=== PATIENT | male | born 1955 | race Caucasian/White ===

== ENCOUNTER → 2020-08-28 10:39 | Outpatient (BNVA) | payer BC, SELFPAY | PROVIDERS: PCP Internal Medicine; Visit Provider Urology | DX: N40.0 Benign prostatic hyperplasia without lower urinary tract symptoms (principal); R97.20 Elevated prostate specific antigen [PSA] | CPT/HCPCS: 81002 ==

== ENCOUNTER → 2021-02-23 15:16 | Outpatient (BNVA) | payer BC, SELFPAY | PROVIDERS: PCP Internal Medicine; Visit Provider Urology ==

== ENCOUNTER → 2022-02-26 12:58 | Outpatient (BNVA) | payer SELFPAY | PROVIDERS: PCP Internal Medicine; Visit Provider Urology | DX: N40.1 Benign prostatic hyperplasia with lower urinary tract symptoms (principal); N13.8 Other obstructive and reflux uropathy | CPT/HCPCS: 51798 ==

== ENCOUNTER 2023-06-17 13:12 | Outpatient (AMB) | payer MEDICARE, SELFPAY ==
--- NOTE | 2023-06-17 13:12 | A.OFFVIS_ITS ---
Intake Intake Visit Reasons: 1YR PSA/PVR(SET) Intake Note: Patient is present today via telephone for PSA results follow-up: Meds- None Allergies to Antibiotic- No Known Allergies Blood Thinner- Aspirin PSR Results: 4.3 ng/mL, 03/23/2023 Die Sinker Required: No Accompanied by: Self / Same As Patient Allergies No Known Allergies Allergy (Verified 02/26/22 13:24) Medication List - Last Reconciled 06/17/23 by Navdeep Young MD aspirin (Adult Aspirin Regimen) 81 mg PO DAILY atorvastatin 10 mg PO DAILY lisinopril 5 mg PO DAILY HPI HPI Comments History of Present Illness0 Details Niko is a pleasant male. He is a patient of Dr. Thomas. 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 Lower urinary tract symptoms Reports minimal issues with the urinary storage or emptying PSA 02/19 3.7, 02/20 3.8, 03/23 4.3 Happy with current urinary performance Continue yearly surveillance [facility] Medical History (Updated 06/17/23 @ 14:54 by Navdeep Young MD) BPH (benign prostatic hyperplasia) Surgical History H/O elbow surgery History of hip replacement Review of Systems Const All systems reviewed & are unremarkable except as noted in HPI and below Reports no additional complaints Resp Reports no additional complaints GI Reports no additional complaints Reports as per HPI Musc Reports no additional complaints Physical Exam Telemedicine evaluation Appropriate responses Regular breathing rate and rhythm HEENT Head: Yes normal to inspection Ears: hearing grossly normal bilaterally Eyes General: appearance normal, both eyes and all related structures Neck Neck: Yes normal visual inspection Chest Chest palpation & inspection: normal inspection of the chest Resp Effort & Inspection: normal respiratory effort and able to speak in complete sentences Assessment & Plan Assessment & Plan (1) BPH (benign prostatic hyperplasia): Code(s): N40.0 - Benign prostatic hyperplasia without lower urinary tract symptoms Qualifiers: Lower urinary tract symptom presence: symptoms absent Qualified Code(s): N40.0 - Benign prostatic hyperplasia without lower urinary tract symptoms (2) Elevated PSA: Code(s): R97.20 - Elevated prostate specific antigen [PSA] Plan 6m f/u PSA Orders: Orders Prostate Specific Antigen 6 Months N40.0 - Benign prostatic hyperplasia without lower urinary tract symptoms Patient Instructions: Imaging studies, laboratory and physical exam results were discussed and reviewed in detail. No major barriers to patient understanding were identified. An opportunity to ask questions regarding the treatment plan was provided. All questions were answered. The patient expressed understanding and agreement with the above treatment plan. The patient is aware they should contact our office by phone for worsening of their current condition or the appearance of new urologic symptoms. Compliance is encouraged with any medications and followup testing that is ordered. It is a privilege to participate in the urologic care of your patient. If you have any questions or concerns regarding treatment for the above conditions, or other urologic issues, please do not hesitate to contact me. The office telephone contact is [phone]. This note is constructed using voice recognition software. While every effort has been made to ensure accuracy commercial lines manager errors may have been included. Yours sincerely, Dr Navdeep Young MD, [facility] - Urology Providers of Expert, Compassionate Care for the Genitourinary System Telehealth Telehealth Location of provider rendering services: practice address Location of patient: address on file Patient Identification confirmed using: Name, : Yes Telehealth method: video Patient verbally consented to treatment: Yes Patient verbally consented to billing insurance company: Yes Patient informed of any privacy concerns related to visit: Yes Coding Level of Care Code Tele Est Pt Level 3 (29151) Diagnoses Benign prostatic hyperplasia without lower urinary tract symptoms N40.0 Lower urinary tract symptom presence: symptoms absent Elevated PSA R97.20
== END 2023-06-17 14:57 | disposition home or self-care (01) ==
LOC: HO.HUSH 13:12
PROVIDERS: PCP Internal Medicine; Visit Provider Urology
DX: N40.0 Benign prostatic hyperplasia without lower urinary tract symptoms (principal); R97.20 Elevated prostate specific antigen [PSA]
CPT/HCPCS: 99213

== ENCOUNTER → 2023-06-17 13:12 | Outpatient (BNVA) | payer MEDICARE, SELFPAY | PROVIDERS: PCP Internal Medicine; Visit Provider Urology ==

== ENCOUNTER 2023-12-26 10:14 | Outpatient (AMB) | payer MEDICARE, SELFPAY ==
--- NOTE | 2023-12-26 10:22 | A.OFFVIS_ITS ---
Intake Visit Reasons: PSA follow up(set) Intake Note: Patient is Present for Follow Up Urology Medication: None Antibiotic Allergies:None Blood Thinners:None Allergies No Known Allergies Allergy (Verified 12/26/23 10:27) HPI Comments Details: Niko is a pleasant male. He is a patient of Dr. Thomas. 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 Has upcoming surgery for double vision Planning cruise to [place] this summer Lower urinary tract symptoms Reports minimal issues with the urinary storage or emptying PSA 02/19 3.7, 02/20 3.8, 03/23 4.3, 12/23 3.7 Happy with current urinary performance Continue yearly surveillance [facility] Medical History BPH (benign prostatic hyperplasia) Surgical History H/O elbow surgery History of hip replacement Review of Systems Const Denies chills and Denies fever(s) Card Reports no additional complaints and Denies syncope Resp Denies cough GI Denies abdominal pain and Denies heartburn Reports as per HPI and Denies change in libido Neuro Denies syncope Psych Denies change in libido Endo Denies change in libido Physical Exam Const General: cooperative, healthy appearing, comfortable and no acute distress Orientation/consciousness: patient oriented x3 HEENT Face and sinus: Yes normal facial exam Mouth: moist mucous membranes Neck Neck: Yes normal visual inspection, Yes full ROM and Yes trachea midline Chest Chest palpation & inspection: normal inspection of the chest Resp Effort & Inspection: normal respiratory effort, able to speak in complete sentences and no respiratory distress GI Inspection: Yes normal to inspection Back/Spine/Pelvis Cervical Spine: normal cervical lordosis Thoracic/Lumbar Spine: thoracic and lumbar spine normal to inspection Skin General skin exam: no rashes or lesions noted Neuro General: patient oriented x3, gait normal, tone normal and moves all extremities Extrem General: Yes normal to inspection and Yes capillary refill normal Assessment & Plan Assessment & Plan (1) Elevated PSA: Code(s): R97.20 - Elevated prostate specific antigen [PSA] Category: Medical Plan Twelve month follow-up PSA Orders: Orders Prostate Specific Antigen 364 Days R97.20 - Elevated prostate specific antigen [PSA] Patient Instructions: Imaging studies, laboratory and physical exam results were discussed and reviewed in detail. No major barriers to patient understanding were identified. An opportunity to ask questions regarding the treatment plan was provided. All questions were answered. The patient expressed understanding and agreement with the above treatment plan. The patient is aware they should contact our office by phone for worsening of their current condition or the appearance of new urologic symptoms. Compliance is encouraged with any medications and followup testing that is ordered. It is a privilege to participate in the urologic care of your patient. If you have any questions or concerns regarding treatment for the above conditions, or other urologic issues, please do not hesitate to contact me. The office telephone contact is [phone]. This note is constructed using voice recognition software. While every effort has been made to ensure accuracy dietary supervisor errors may have been included. Yours sincerely, Dr Navdeep Young MD, [facility] - Urology Providers of Expert, Compassionate Care for the Genitourinary System Coding Level of Care Code Est Pt Level 3 (51900) Diagnoses Elevated PSA R97.20
== END 2023-12-26 10:46 | disposition home or self-care (01) ==
PROVIDERS: PCP Internal Medicine; Visit Provider Urology
DX: R97.20 Elevated prostate specific antigen [PSA] (principal)
CPT/HCPCS: 99213

== ENCOUNTER → 2023-12-26 10:14 | Outpatient (BNVA) | payer MEDICARE, SELFPAY | PROVIDERS: PCP Internal Medicine; Visit Provider Urology | DX: R97.20 Elevated prostate specific antigen [PSA] (principal) | CPT/HCPCS: 99212 ==

== ENCOUNTER 2024-12-24 09:40 | Outpatient (AMB) | payer MEDICARE, SELFPAY ==
--- NOTE | 2024-12-24 09:41 | MHC.OFFVIS ---
Intake Visit Reasons: 1y/PSA Intake Note: Patient is present via telehealth for a 1 year follow up/PSA Urology Medication: None Antibiotic Allergies:None Blood Thinners:None Allergies No Known Allergies Allergy (Verified 12/24/24 09:42) HPI Comments Details: Niko is a pleasant male. He is a patient of Dr. Thomas. 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 Has upcoming surgery for double vision Planning cruise to [place] this summer Lower urinary tract symptoms Reports minimal issues with the urinary storage or emptying PSA 02/19 3.7, 02/20 3.8, 03/23 4.3, 12/23 3.7, 12/24 3.7 Happy with current urinary performance Continue yearly surveillance PFSH Medical History BPH (benign prostatic hyperplasia) Surgical History H/O elbow surgery History of hip replacement Review of Systems Const All systems reviewed & are unremarkable except as noted in HPI and below Reports no additional complaints Resp Reports no additional complaints GI Reports no additional complaints Reports as per HPI Musc Reports no additional complaints Physical Exam Telemedicine evaluation Appropriate responses Regular breathing rate and rhythm HEENT Head: Yes normal to inspection Ears: hearing grossly normal bilaterally Eyes General: appearance normal, both eyes and all related structures Neck Neck: Yes normal visual inspection Chest Chest palpation & inspection: normal inspection of the chest Resp Effort & Inspection: normal respiratory effort and able to speak in complete sentences Telehealth Telehealth Telehealth Platform: [place] Airline Location of provider rendering services: practice address Location of patient: address on file Patient Identification confirmed using: Name, : Yes Telehealth method: video Patient verbally consented to treatment: Yes Patient verbally consented to billing insurance company: Yes Patient informed of any privacy concerns related to visit: Yes Minutes spent on Phone/Video with Pt.: 15 Assessment & Plan Assessment & Plan (1) Elevated PSA: Code(s): R97.20 - Elevated prostate specific antigen [PSA] Category: Medical (2) BPH (benign prostatic hyperplasia): Code(s): N40.0 - Benign prostatic hyperplasia without lower urinary tract symptoms Category: Medical Qualifiers: Lower urinary tract symptom presence: symptoms absent Qualified Code(s): N40.0 - Benign prostatic hyperplasia without lower urinary tract symptoms Plan Twelve month follow-up PSA Orders: Orders PSA,Total (Free>4and<10) 12 Months N40.0 - Benign prostatic hyperplasia without lower urinary tract symptoms Patient Instructions: This note is constructed using voice recognition software. While every effort has been made to ensure accuracy self pay specialist errors may have been included. Imaging studies, laboratory and physical exam results were discussed and reviewed in detail. No major barriers to patient understanding were identified. An opportunity to ask questions regarding the treatment plan was provided. All questions were answered. The patient expressed understanding and agreement with the above treatment plan. The patient is aware they should contact our office by phone for worsening of their current condition or the appearance of new urologic symptoms. Compliance is encouraged with any medications and followup testing that is ordered. It is a privilege to participate in the urologic care of your patient. If you have any questions or concerns regarding treatment for the above conditions, or other urologic issues, please do not hesitate to contact me. The office telephone contact is [phone]. Sincerely, Dr Navdeep Young MD, [facility] - Urology Compassionate Specialist Care for the Genitourinary System Coding Level of Care Code Tele Est Pt Level 4 (56134) Complex EM visit Add On G2211 Diagnoses Elevated PSA R97.20 Benign prostatic hyperplasia without lower urinary tract symptoms N40.0 Lower urinary tract symptom presence: symptoms absent
--- OUTSIDE RECORDS SUMMARY | 2024-12-24 09:55 | XMS_ITS | Encounter Summary ---
Author Organization [facility] Address [address] [place] [address] Care Team Providers Care Pet Care Associate Name Role Phone Fei Hickey DO Primary Care Provider Unav ailable Fei Hickey DO Unavailable Unavailabl e Petrona Wade APRN Unavailable [phone] Tito Parish MD Unavailable [phone] Blayne Kyle MD Unavailable [phone] Navdeep Young MD Unavailable [phone] Juan Manuel Vallecillo MD Primary Care Provider Encounter Details Date Type Department Care Team (Late st Contact Info) Description 12/23/2023 Scanned Document [address] [phone] Primary Care, Scan Social History Tobacco Use Types Packs/Day Years Used Date Smoking Tobacco: Never Smokeless Tobacco: Never Alcohol Use Standard Drinks/Week Comments Yes 1 (1 standard drink = 0.6 oz pur e alcohol) PHQ-2 Answer Date Recorded PHQ-2 Total Score 0 07/31/2023 Sex and Gender Information Value Date Recorded Sex Assigned at Male 09/12/2024 10:23 PM EST Legal Sex Male 6:43 PM EST Gender Identity Male 09/12/2024 10:23 PM EST Sexual Orientation Not on file documented as of this encounter Plan of Treatment Upcoming Encounters Date Type Department Care Team (Late st Contact Info) Description 03/03/2025 1:00 PM EDT Office Visit [facility] 100 [facility] [address] [place] [address] Juan aMnuel Vallecillo MD 100 [facility] [address] [place] [address] documented as of this encounter Visit Diagnoses Not on filedocumented in this encounter Care Teams Pet Care Associate Relationship Specialty Start Date End Date Fei Hickey DO PCP - General Internal Medicine 07/31/23 09/12/24 Fei Hickey DO PCP - APNCT [place] Medicare Attributed 09/01/23 10/01/24 Juan Manuel Vallecillo MD [address] [address] PCP - General Internal Medicine 09/13/24 Petrona Wade APRN [address] [place] [address] Nurse Practitioner Internal Medicine 02/23/24 Tito Parish MD [address] [place] [address] Gastroenterology 02/23/24 Blayne Kyle MD [address] [place] [phone] Dermatology 02/23/24 Navdeep Young MD [address] [address] Urology 02/23/24 [facility] Dentist 02/23/24 documented as of this encounter
--- OUTSIDE RECORDS SUMMARY | 2024-12-24 09:55 | XMS_ITS | Encounter Summary ---
Author Organization [facility] Address [address] [place] [address] Care Team Providers Care Marketing Graphics Specialist Name Role Phone Fei Hickey DO Primary Care Provider Unav ailable Fei Hickey DO Unavailable Unavailabl e Petrona Wade APRN Unavailable [phone] Tito Parish MD Unavailable [phone] Blayne Kyle MD Unavailable [phone] Navdeep Young MD Unavailable [phone] Juan Manuel Vallecillo MD Primary Care Provider [phone] Encounter Details Date Type Department Care Team (Late st Contact Info) Description 09/30/2023 Scanned Document [address] [phone] Primary Care, Scan Social History Tobacco Use [...] Description 03/03/2025 1:00 PM EDT Office Visit [facility] 100 [facility] 101 [place] [address] Juan Manuel Vallecillo MD 100 [facility] [address] [place] [address] documented as of this encounter Visit Diagnoses Not on filedocumented in this encounter Care Teams Marketing Graphics Specialist Relationship Specialty Start Date End Date Fei Hickey DO PCP - General Internal Medicine 07/31/23 09/12/24 Fei Hickey DO PCP - APNCT [place] Medicare Attributed 09/01/23 10/01/24 Juan Manuel Valleclilo MD [address] [address] PCP - General Internal Medicine 09/13/24 Petrona Wade APRN [address] [place] [address] Nurse Practitioner Internal Medicine 02/23/24 Tito Parish MD [address] [place] [address] Gastroenterology 02/23/24 Blayne Kyle MD [address] [place] [phone] Dermatology 02/23/24 Navdeep Young MD [address] [address] Urology 02/23/24 [facility] Dentist 02/23/24 documented as of this encounter
--- OUTSIDE RECORDS SUMMARY | 2024-12-24 09:55 | XMS_ITS | Encounter Summary ---
Author Organization [facility] Address [address] [place] [address] Care Team Providers Care Grubber Name Role Phone Petrona Wade APRN Unavailable [phone] Tito Parish MD Unavailable [phone] Blayne Kyle MD Unavailable [phone] Navdeep Young MD Unavailable [phone] Juan Manuel Vallecillo MD Primary Care Provider [phone] Encounter Details Date Type Department Care Team (Late st Contact Info) Description 12/22/[address] [phone] Juan Manuel Vallecillo MD [address] [place] [address] Social History Tobacco Use Types Packs/Day Years Used Date Smoking Tobacco: Never Smokeless Tobacco: Never Alcohol Use Standard Drinks/Week Comments Yes 1 (1 standard drink = 0.6 oz pur e alcohol) 1 drink/wk [facility] Utilities Answer Date Recorded In the past 12 months has [employer], gas, oil, or water [employer] threatened to shut off services in your home? No 09/12/2024 Social Connection and Isolat ion Panel [NHANES] Answer Date Recorded In a typical week, how many times do you talk on the phone with family, friends, or neighbors? More than three times a week 09/12/2024 Frequency of Social Gatherin gs with Friends and Family Not on file 09/12/2024 Attends [employer] Services Not on file 09/12 Active Member of Clubs or Organizations Not on f ile 09/12/2024 Attends Club or Organization Meetings Not on imtiaz e 09/12/2024 Marital Status Not on file 09/12/2024 AUDIT-C Answer Date Recorded Q1: How often do you have a drink containing alc ohol? 2-4 times a month 09/12/2024 Q2: How many drinks containi ng alcohol do you have on a typical day when you are drinking? 1 or 2 09/12/2024 Q3: How often do you have si x or more drinks on one occasion? Never 09/12/2024 PHQ-2 Answer Date Recorded PHQ-2 Total Score 0 09/13/2024 Hunger Vital Sign Answer Date Recorded Within the past 12 months, y ou worried that your food would run out before you got the money to buy more. Never true 09/12/19 25 Within the past 12 months, t he food you bought just didn't last and you didn't have money to get more. Never true 09/12/2024 PRAPARE - Transportation Answer Date Re corded In the past 12 months, has l ack of transportation kept you from medical appointments or from getting medications? No 09/01 In the past 12 months, has l ack of transportation kept you from meetings, work, or from getting things needed for daily living? No 09/12/2024 Housing Stability Vital Sign Answer Escobar e Recorded In the last 12 months, was t here a time when you were not able to pay the mortgage or rent on time? No 09/12/2024 In the past 12 months, how m any times have you moved where you were living? 0 09/12/2024 At any time in the past 12 m [facility], were you homeless or living in a longterm (including now)? No 09/12/2024 Education Answer Date Recorded What is the highest level of school you have completed or the highest degree you have received? Bachelor's degree (e.g., BA, AB, BS) 09/12/2024 Sex and Gender Information Value Date Recorded Sex Assigned at Male 09/12/2024 10:23 PM EST Legal Sex Male 6:43 PM EST Gender Identity Male 09/12/2024 10:23 PM EST Sexual Orientation Not on file documented as of this encounter Miscellaneous Notes * Telephone Encounter - Venu Del Valle MA - 12/23/2024 12:08 PM EDT Referral placed and faxed to the number/provider listed below * Telephone Encounter - Venu Del Valle MA - 12/23/2024 10:04 AM EDT Ok to place referral? * Telephone Encounter - Yessenia Harry - 12/22/2024 4:27 PM EDT Pt needs a doctor to doctor referral placed last one placed was over a year ago, I do not believe his insurance requires a actual insurance auth, needs doctor to doctor * Telephone Encounter - Lillian Steele MA - 12/22/2024 3:04 PM EDT 's office needs a STAT insurance referral for urology. She stated his appt is on Friday, Diagnosis R97.20 . She is requesting 10 visits. documented in this encounter Plan of Treatment Upcoming Encounters Date Type Department Care Team (Late st Contact Info) Description 03/03/2025 1:00 PM EDT Office Visit [address] [place] [phone] Juan Manuel Vallecillo MD 100 [facility] 101 [place], [place] [phone] documented as of this encounter Visit Diagnoses Not on filedocumented in this encounter Care Teams Grubber Relationship Specialty Start Date End Date Juan Manuel Vallecillo MD 100 [facility] [address] [place] [address] PCP - General Internal Medicine 09/13/24 Petrona Wade APRN [address] [place] [address] Nurse Practitioner Internal Medicine 02/23/24 Tito Parish MD [address] [place] [address] Gastroenterology 02/23/24 Blayne Kyle MD [address] [place] [phone] Dermatology 02/23/24 Navdeep Young MD 100 [facility] [address] [place] [address] Urology 02/23/24 [facility] Dentist 02/23/24 documented as of this encounter
--- OUTSIDE RECORDS SUMMARY | 2024-12-24 09:55 | XMS_ITS | Clinical Summary ---
Author Organization [facility] Address [address] [place] [address] Care Team Providers Care Air Defense Artillery Senior Sergeant Name Role Phone Britton PerezFei sloan Juan ADaniel Primary Care Provi pawel Surgical History Surgery Date Site/Laterality Comments KNEE CARTILAGE SURGERY Right PROCEDURE:KNEE CARTILAGE SURGERY ELBOW SURGERY PROCEDURE:ELBOW SURGERY COLONOSCOPY 09/04/2018 N/A PROCEDURE:COLONOSCOPY;COMMENT :Procedure: COLONOSCOPY; Surgeon: Tito Parish MD; Location: [facility]; Service: Gastroenterology; Laterality: N/A; COLONOSCOPY 08/15/2015 N/A PROCEDURE:COLONOSCOPY;COMMENT :Procedure: COLONOSCOPY; Surgeon: Tito Parish MD; Location: [facility]; Service: Gastroenterology; Laterality: N/A; STRABISMUS SURGERY PROCEDURE:STRABISMUS SURGERY STRABISMUS SURGERY 01/16/2024 Right PROCEDURE:STRABISMUS SURGERY;COMMENT:Procedure: STRABISMUS REPAIR RIGHT EYE; Surgeon: Kair Brice MD; Location: [facility]; Service: Ophthalmology; Laterality: Right; TOTAL HIP ARTHROPLASTY 09/2015 Right PROCEDURE:TOTAL HIP ARTHROPLASTY CATARACT EXTRACTION W/ INTRAOCULAR LENS IMPLANT Right PROCEDURE:CATARACT EXTRACTION W/ INTRAOCULAR LENS IMPLANT COLONOSCOPY 02/26/2024 N/A PROCEDURE:COLONOSCOPY;COMMENT :Procedure: COLONOSCOPY; Surgeon: Tito Parish MD; Location: [facility]; Service: Gastroenterology; Laterality: N/A; Medical History Medical History Date Comments Right hip pain DX:Right hip alton n;COMMENT:hip replacement scheduled for September 2015 Arthritis DX:Arthritis Hypertension DX:Hypertension Prediabetes DX:Prediabetes Cataract DX:Cataract Colon polyp DX:Colon polyp Social History Tobacco Use Types Packs/Day Years Used Date Smoking Tobacco: Never Smokeless Tobacco: Never Alcohol Use Standard Drinks/Week Comments Yes 0 (1 standard drink = 0.6 oz pur e alcohol) Sex and Gender Information Value Date Recorded Sex Assigned at Not on file Legal Sex Male 11:31 AM EST Gender Identity Not on file Sexual Orientation Not on file Obstetrics History Plan of Treatment Health Maintenance Due Date Last Done Comments DTaP,Tdap,and Td Vaccines (1 - Tdap) 1975 Pneumococcal Vaccine: 50+ Ye ars (1 of 1 - PCV) 2006 Zoster Vaccines (1 of 2) 2006 Cholesterol Screening (Lipid Panel) 10/05/2023 Depression Screening 10/05/2023 Falls Risk Assessment 10/05/2023 Hepatitis C Screening 10/05/2023 Social Influencers of Health Screening 10/05/2023 COVID-19 Vaccine (1 - 2023-2 5 season) 2024 Influenza Vaccine (Season Ended) 2025 RSV Immunization Adult Patie nts (1 - 1-dose 75+ series) 2031 Colorectal Cancer Screening: Colonoscopy 02/25/2034 02/26/2024 HIB Vaccines Aged Out No longer eligi ble based on patient's age to complete this topic HPV Vaccines Aged Out No longer eligi ble based on patient's age to complete this topic Hepatitis A Vaccines Aged Out No long er eligible based on patient's age to complete this topic Hepatitis B Vaccines Aged Out No long er eligible based on patient's age to complete this topic IPV Vaccines Aged Out No longer eligi ble based on patient's age to complete this topic MMR Vaccines Aged Out No longer eligi ble based on patient's age to complete this topic Meningococcal ACWY Vaccine Aged Out N o longer eligible based on patient's age to complete this topic Meningococcal B Vaccine Aged Out No l onger eligible based on patient's age to complete this topic RSV Immunization Patients Un pawel 20 months Aged Out No longer eligible b ased on patient's age to complete this topic Varicella Vaccines Aged Out No longer eligible based on patient's age to complete this topic Medical Devices Implanted Type Area Finishing Inspector Device Identifier Shelf Expiration Date Model / Serial / Lot Sponge Surgifoam Gel 12 X 7mm [id number]-Ethi [id number] Implanted:Qty: 1 on 01/16/2024 by Kari Brice MD Implants Right: Nose [employer] 1972 / / Care Teams Air Defense Artillery Senior Sergeant Relationship Specialty Start Date End Date Fei Mendoza DO PCP - General 02/16/24
--- OUTSIDE RECORDS SUMMARY | 2024-12-24 09:55 | XMS_ITS | Encounter Summary ---
Author Organization [facility] Address [address] [place] [address] Care Team Providers Care Treasurer Savings Bank Name Role Phone Fei Hickey DO Primary Care Provider Unav ailable Fei Hickey DO Unavailable Unavailabl e Petrona Wade APRN Unavailable [phone] Tito Parish MD Unavailable [phone] Blayne Kyle MD Unavailable [phone] Navdeep Young MD Unavailable [phone] Juan Manuel Vallecillo MD Primary Care Provider Encounter Details Date Type Department Care Team (Late st Contact Info) Description 08/05/2023 Scanned Document [address] [phone] Primary Care, Scan Social History Tobacco Use [...] Description 03/03/2025 1:00 PM EDT Office Visit [facility] 100 [facility] 101 [place] [address] Juan Manuel Vallecillo MD 100 [facility] 101 [place] [address] documented as of this encounter Visit Diagnoses Not on filedocumented in this encounter Care Teams Treasurer Savings [employer] Relationship Specialty Start Date End Date Fei Hickey DO PCP - General Internal Medicine 07/31/23 09/12/24 Fei Hickey DO PCP - APNCT [place] Medicare Attributed 09/01/23 10/01/24 Juan Manuel Vallecillo MD [address] [address] PCP - General Internal Medicine 09/13/24 Petrona Wade APRN [address] [place] [address] Nurse Practitioner Internal Medicine 02/23/24 Tito Parihs MD [address] [place] [address] Gastroenterology 02/23/24 Blayne Kyle MD [address] [place] [phone] Dermatology 02/23/24 Navdeep Young MD [address] [address] Urology 02/23/24 edgardo dental Dentist 02/23/24 documented as of this encounter
--- OUTSIDE RECORDS SUMMARY | 2024-12-24 09:55 | XMS_ITS | Encounter Summary ---
Author Organization [facility] Address [address] [place] [address] Care Team Providers Care Deer Farm Worker Name Role Phone Petrona Wade APRN Unavailable [phone] Tito Parish MD Unavailable [phone] Blayne Kyle MD Unavailable [phone] Navdeep Young MD Unavailable [phone] Juan Manuel Vallecillo MD Primary Care Provider [phone] Reason for Referral * Urology (Routine) - Authorized Specialty Diagnoses / Procedures Referred By Jake valle Referred To Contact Urology Diagnoses Elevated PSA Juan Manuel Vallecillo MD [address] [place] [address] Phone: tel: fax: Navdeep Young MD [address] [place] [address] Phone: tel: fax: Referral ID Status Reason Start Date Expiration Date V isits Requested Visits Authorized [id number] Authorized Consult 12/23/2024 12/24/2025 1 1 Encounter Details Date Type Department Care Team (Late st Contact Info) Description 12/23/2024 Orders Only [address] [phone] Juan Manuel Vallecillo MD [address] [facility] [address] [place] [address] Elevated PSA (Primary Dx) Social History Tobacco Use Types Packs/Day Years Used Date Smoking Tobacco: Never Smokeless Tobacco: Never Alcohol Use Standard Drinks/Week Comments Yes 1 (1 standard drink = 0.6 oz pur e alcohol) 1 drink/wk [facility] Utilities Answer Date Recorded In the past 12 months has th e Novint, gas, oil, or water [employer] threatened to shut off services in your home? No 09/12/2024 Social Connection and Isolat ion Panel [NHANES] Answer Date Recorded In a typical week, how many times do you talk on the phone with family, friends, or neighbors? More than three times a week 09/12/2024 Frequency of Social Gatherin gs with Friends and Family Not on file 09/12/2024 Attends Gnosticism Services Not on file 09/12 Active Member [...] any time in the past 12 m [facility], were you homeless or living in a fdc (including now)? No 09/12/2024 Education Answer Date [...] Description 03/03/2025 1:00 PM EDT Office Visit [address] [phone] Juan Manuel Vallecillo MD [address] [place], [place] [phone] Scheduled Referrals Name Type Priority Associated Diagnoses Orde r Schedule Amb referral to Urology Outpatient Referral Routine Elevated PSA Ordered: 12/23/2024 documented as of this encounter Visit Diagnoses Diagnosis Elevated PSA- Primary Elevated prostate specific antigen (PSA) documented in this encounter Care Teams Deer Farm Worker Relationship Specialty Start Date End Date Juan Manuel Vallecillo MD [address] [place] [address] PCP - General Internal Medicine 09/13/24 Petrona Wade APRN [address] [place] [address] Nurse Practitioner Internal Medicine 02/23/24 Tito Parish MD [address] [address] Gastroenterology 02/23/24 Blayne Kyle MD 125 [place] [phone] Dermatology 02/23/24 Navdeep Young MD 100 [facility] 240 [place] [address] Urology 02/23/24 edgardo dental Dentist 02/23/24 documented as of this encounter
--- OUTSIDE RECORDS SUMMARY | 2024-12-24 09:55 | XMS_ITS | Encounter Summary ---
Author Organization [facility] Address 100 [place] [address] Care Team Providers Care Instrument Installer Name Role Phone Pcp, No Primary Care Provider Unavailabl e Fei Hickey DO Primary Care Provider Unav ailable Fei Hickey DO Unavailable Unavailabl e Petrona Wade FRAME TRIMMER Unavailable Tito Parish MD Unavailable Blayne Kyle MD Unavailable [phone] Navdeep Young MD Unavailable Juan Manuel Vallecillo MD Primary Care Provider [phone] Encounter Details Date Type Department Care Team (Late st Contact Info) Description 09/08/2018 Scanned Document [facility] [address] [phone] Tito Parish MD [address] [place] [id number] Social History Tobacco Use Types Packs/Day Years Used Date Smoking Tobacco: Never Assessed Sex and Gender Information Value Date Recorded Sex Assigned at Male 09/12/2024 10:23 PM EST Legal Sex Male 6:43 PM EST Gender Identity Male 09/12/2024 10:23 PM EST Sexual Orientation Not on file documented as of this encounter Plan of Treatment Upcoming Encounters Date Type Department Care Team (Late st Contact Info) Description 03/03/2025 1:00 PM EDT Office Visit [facility] 100 [facility] 101 [place] [address] Juan Manuel Vallecillo MD 100 [facility] 101 [place] [address] documented as of this encounter Visit Diagnoses Not on filedocumented in this encounter Care Teams Instrument Installer Relationship Specialty Start Date End Date Pcp, No 80 [place] [address] PCP - General 05/14/23 07/30/23 Fei Hickey DO 80 [place] [address] PCP - General Internal Medicine 07/31/23 09/12/24 Fei Hickey DO PCP - APNCT [place] Medicare Attributed 09/01/23 10/01/24 Juan Manuel Vallecillo MD [address] [address] PCP - General Internal Medicine 09/13/24 Petrona Wade APRN [address] [place] [address] Nurse Practitioner Internal Medicine 02/23/24 Tito Parish MD [address] [place] [address] Gastroenterology 02/23/24 Blayne Kyle MD [address] [place] [phone] Dermatology 02/23/24 Navdeep Young MD [address] [address] Urology 02/23/24 ed[facility] dental Dentist 02/23/24 documented as of this encounter
--- OUTSIDE RECORDS SUMMARY | 2024-12-24 09:55 | XMS_ITS | Encounter Summary ---
Author Organization [facility] Address 100 [place] [address] Care Team Providers Care Tetryl Boiling Tub Operator Name Role Phone Fei Hickey DO Primary Care Provider Unav ailable Fei Hickey DO Unavailable Unavailabl e Petrona Wade APRN Unavailable Tito Parish MD Unavailable Blayne Kyle MD Unavailable [phone] Navdeep Young MD Unavailable Juan Manuel Vallecillo MD Primary Care Provider Encounter Details Date Type Department Care Team (Late st Contact Info) Description 11/27/[address] [facility] [address] [place] [address] Rosendo Salazar 30 [facility] [place] [address] Social History Tobacco Use Types Packs/Day Years [...] encounter Miscellaneous Notes * Telephone Encounter - Rosendo Salazar - 11/27/2023 10:53 AM EDT Patient could not hear me documented in this encounter Plan of Treatment Upcoming Encounters Date Type Department Care Team (Late st Contact Info) Description 03/03/2025 1:00 PM EDT Office Visit [facility] 100 [facility] [address] [place] [address] Juan Manuel Vallecillo MD 100 [facility] 101 [place] [address] documented as of this encounter Visit Diagnoses Not on filedocumented in this encounter Care Teams Tetryl Boiling Tub Operator Relationship Specialty Start Date End Date Fei Hickey DO PCP - General Internal Medicine 07/31/23 09/12/24 Fei Hickey DO PCP - APNCT [employer] Medicare Attributed 09/01/23 10/01/24 Juan Manuel Vallecillo MD [address] [place] [address] 240 [place] [address] PCP - General Internal Medicine 09/13/24 Petrona Wade, TITLE I DIRECTOR [address] [place] [address] Nurse Practitioner Internal Medicine 02/23/24 Tito Parish MD 113 [facility] 301 [place] [address] Gastroenterology 02/23/24 Blayne Kyle MD [address] [place] [phone] Dermatology 02/23/24 Navdeep Young MD 100 [place] [address] [place] [address] Urology 02/23/24 ed[facility]ardo dental Dentist 02/23/24 documented as of this encounter
--- OUTSIDE RECORDS SUMMARY | 2024-12-24 09:55 | XMS_ITS | Encounter Summary ---
Author Organization [facility] Address [address] [place] [address] Care Team Providers Care Bridge Manager Name Role Phone Fei Hickey DO Primary Care Provider Unav ailable Fei Hickey DO Unavailable Unavailabl e Petrona Wade APRN Unavailable [phone] Tito Parish MD Unavailable [phone] Blayne Kyle MD Unavailable [phone] Navdeep Young MD Unavailable [phone] Juan Manuel Vallecillo MD Primary Care Provider Encounter Details Date Type Department Care Team (Late st Contact Info) Description 12/24/2023 Scanned Document [address] [phone] Primary Care, Scan Social History Tobacco Use [...] Description 03/03/2025 1:00 PM EDT Office Visit [facility] 100 [facility] 101 [place] [address] Juan Manuel Vallecillo MD 100 [facility] 101 [place] [address] documented as of this encounter Visit Diagnoses Not on filedocumented in this encounter Care Teams Bridge Manager Relationship Specialty Start Date End Date Fei Hickey DO PCP - General Internal Medicine 07/31/23 09/12/24 Fei Hickey DO PCP - APNCT [place] Medicare Attributed 09/01/23 10/01/24 Juan Manuel Vallecillo MD [address] [address] PCP - General Internal Medicine 09/13/24 Petrona Wade APRN [address] [place] [address] Nurse Practitioner Internal Medicine 02/23/24 Tito Parish MD [address] [place] [address] Gastroenterology 02/23/24 Blayne Kyle MD [address] [place] [phone] Dermatology 02/23/24 Navdeep Young MD [address] [address] Urology 02/23/24 [facility] dental Dentist 02/23/24 documented as of this encounter
--- OUTSIDE RECORDS SUMMARY | 2024-12-24 09:55 | XMS_ITS | Clinical Summary ---
Author Organization [facility] Address 114 [place] [address] Care Team Providers Care Natural Gas Technician Name Role Phone Fei Mendoza DO Primary Care Prov ider Allergies Active Allergy Reactions Criticality Noted Date Comments Metformin Nausea And Vomiting Low 01/14/2024 Medications Medication Sig Dispensed Refills Start Date End Date Status aspirin 81 MG chewable tablet Chew 1 tablet (81 mg total) by mouth daily. 30 tablet 1 01/21/2017 Active losartan (COZAAR) tablet 25 mg Take 1 tablet (25 mg total) by mouth daily. 0 Active Calcipotriene (DOVONEX EX) Apply topically. 0 Active sildenafil (VIAGRA) 25 MG tablet Take 1 tablet (25 mg total) by mouth daily as needed for erectile dysfunction. 0 Active Ferrous Sulfate (IRON PO) Take by mouth daily. 0 Active Active Problems No known active problems Social History Tobacco Use Types Packs/Day Years Used Date Smoking Tobacco: Never Smokeless Tobacco: Never Alcohol Use Standard Drinks/Week Comments Yes 0 (1 standard drink = 0.6 oz pur e alcohol) occasional Sex and Gender Information Value Date Recorded Sex Assigned at Male 09/02/2018 11:11 AM EST Gender Identity Not on file Sexual Orientation Not on file Job Start Date Occupation Industry Not on file Not on file Not on file Last Filed Vital Signs Vital Sign Reading Time Taken Comments Blood Pressure 143/68 02/26/2024 10:34 AM EDT Pulse 60 02/26/2024 10:34 AM EDT Temperature 36.7 ??C (98 ??F) 02/26/2024 10:06 AM EDT Respiratory Rate 8 02/26/2024 10:34 AM EDT Oxygen Saturation 97% 02/26/2024 10:34 AM EDT Inhaled Oxygen Concentration - - Weight 117.9 kg (260 lb) 02/26/2024 8:46 AM EDT Height 182.9 cm (6') 02/26/2024 8:46 AM EDT Body Mass Index 35.26 02/26/2024 8:46 AM EDT Plan of Treatment Health Maintenance Due Date Last Done Comments Hepatitis C Screening 1956 COVID-19 Vaccine (#1) 1956 Depression Screening 1968 BMI Counseling 1974 Preventative Health Evaluation 1974 Shingrix-Zoster Vaccine (1 o f 2) 2006 Fall Risk Assessment 2021 Influenza Vaccine (#1) 2024 2, 07/04/2014 RSV Adult > 60+ Yrs or (1 - 1-dose 75+ series) 2031 DTap / Tdap / Td (3 - Td or Tdap) 04/26/2031 04/26/2021, 07/06/2014 Colon Cancer Screening (Colonoscopy) 02/25/2034 02/26/2024 Pneumococcal Vaccine Completed 11/14/2022 Hepatitis B Vaccines Aged Out No long er eligible based on patient's age to complete this topic RSV Ped < 20 months Aged Out No longe r eligible based on patient's age to complete this topic Medical Devices Implanted Type Area Obstetric Assistant Device Identifier Shelf Expiration Date Model / Serial / Lot Sponge Surgifoam Gel 12 X 7mm [id number] - [id number] Implanted:Qty : 1 on 01/16/2024 by Kari Brice MD at [facility] Hemostatic Agent Right: Nose [facility] [employer] 1971 / / Advance Directives For more information, please contact: [phone] Documents on File Type Date Recorded Patient Black Top Raker Expl anation Advance Directive and Living Will 01/16/2024 8:12 AM Latest Code Status on File Code Status Date Activated Date Inactivated Comments Full Code 09/04/2018 12:08 PM 09/04/2018 6:45 PM This c ode status was ascertained in the following way: discussion with patient. Code Status History Code Status Date Activated Date Inactivated Comments Full Code 08/15/2015 11:08 AM 08/15/2015 5:47 PM Th is code status was ascertained in the following way: discussion with patient. Care Teams Natural Gas Technician Relationship Specialty Start Date End Date Fei Mendoza, [address] [place] [address] PCP - General Family Medicine 02/16/24
--- OUTSIDE RECORDS SUMMARY | 2024-12-24 09:55 | XMS_ITS ---
Author Name [facility] Organization Unknown History of Medication Use Medication Directions Dispensed Refills Start Date End Date Stat us lactated ringers infusion 50 mL/hr, Intravenous, Continuous, Starting on Fri01/16/24 at 0830, Pre-op 01/16/2024 active ondansetron (ZOFRAN) injection 4 mg 4 mg, Intravenous, Once as needed, nausea, Starting on Fri01/16/24 at 1149, For 1 dose, PACU/Phase 1 01/16/2024 active gdvvjk-bqdjrtfyv-vwh nesium sulfates (SUPREP BOWEL PREP) 17.5-3.13-1.6 GM/177ML Solution solution Take as directed for Colonoscopy/GI Procedure. See administration instructions. 11/27/2023 active atorvastatin (LIPITOR) 10 MG tablet Take 1 tablet (10 mg total) by mouth daily. 05/08/2023 active aspirin 81 MG chewable tablet Chew 1 tablet (81 mg total) by mouth daily. 01/21/2017 active aspirin enteric coated (ECOTRIN LOW STRENGTH) 81 MG EC tablet Take 1 tablet (81 mg total) by mouth daily. active Calcipotriene (DOVONEX EX) Apply topically. active losartan (COZAAR) tablet 25 mg Take 1 tablet (25 mg total) by mouth daily. active losartan (COZAAR) tablet 25 mg Take 1 tablet (25 mg total) by mouth daily. active Problems Problem Status Onset Date Problem Type Date of Resoluti on Source Personal history of colonic polyps active EncounterDiagnosisAct [facility] Severe obesity (BMI 35.0-39.9) with comorbidity active 2023-12-24 [facility] Immunizations Vaccine Date Source Lot Number Status Pneumococcal Conjugate 20-Valent 11/14/2022 [facility] [id number] completed Influenza High-Dose Quadriva lent,(FLUZONE HIGH-DOSE), Perservative Free IM 0.7 mL 65 years and older 07/12/2022 [facility] [id number] completed Tdap 04/26/2021 [facility] [id number] completed Influenza, Unspecified 06/08/2020 [facility] [id number] co mpleted Tdap 07/06/2014 [facility] [id number] completed Influenza Inactivated/Split Preservative Free IM 07/04/2014 [facility] [id number] completed Encounters Encounter Type Encounter Reason Primary Diagnosis Location Date Ambulatory Essential (primary) hypertension Essential (primary) hypertension [facility] 09/13/2024 Ambulatory Personal history of colonic polyps Personal history of colonic polyps [facility] 02/26/2024 Ambulatory Encounter for genera l adult medical examination without abnormal findings Encounter for general adult medical examination without abnormal findings [facility] 02/23/2024 Ambulatory 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 [facility] 01/16/2024 Ambulatory Encounter for other preprocedural examination Encounter for other preprocedural examination [facility] 12/23/2023 Ambulatory Unspecified nystagmus Unspecifie d nystagmus [facility] 07/31/2023 Care Team Organization Name Specialty Phone Email Start Date End [facility] 09/14/2024 [facility] Primary Care 01/22/2024 [facility] Primary Care 01/22/20 [facility] 01/16/2024 [facility] RO Primary Care 01/06 [facility] Primary Care 04/2024 [facility] JANIS Primary Care 09/21/2023 11/17/2024 [facility] Fei Hickey Primary Care 07/31/20232024 [facility] Fei Hickey Primary Care 07/31/20232023 [facility] NO PCP Primary Care 07/31/2023 07/31/2023
--- OUTSIDE RECORDS SUMMARY | 2024-12-24 09:55 | XMS_ITS | Encounter Summary ---
Author Organization Formerly [facility] Address [address] [place] [address] Care Team Providers Care Hourly Shift Name Role Phone Fei Hickey DO Primary Care Provider Unav ailable Fei Hickey DO Unavailable Unavailabl e Petrona Wade APRN Unavailable [phone] Tito Parish MD Unavailable [phone] Blayne Kyle MD Unavailable [phone] Navdeep Young MD Unavailable [phone] Juan Manuel Vallecillo MD Primary Care Provider Encounter Details Date Type Department Care Team (Late st Contact Info) Description 12/08/2023 Scanned Document [address] [phone] Primary Care, Scan Social History Tobacco Use [...] Description 03/03/2025 1:00 PM EDT Office Visit [facility] [address] [facility] 101 [place] [address] Juan Manuel Vallecillo MD 100 [facility] 101 [place] [address] documented as of this encounter Visit Diagnoses Not on filedocumented in this encounter Care Teams Hourly Shift Relationship Specialty Start Date End Date Fei Hickey DO PCP - General Internal Medicine 07/31/23 09/12/24 Fei Hickey DO PCP - APNCT [place] Medicare Attributed 09/01/23 10/01/24 Juan Manuel Vallecillo MD [address] [address] PCP - General Internal Medicine 09/13/24 Petrona Wade APRN [address] [place] [address] Nurse Practitioner Internal Medicine 02/23/24 Tito Parish MD [address] [place] [address] Gastroenterology 02/23/24 Blayne Kyle MD [address] [place] [phone] Dermatology 02/23/24 Navdeep Young MD [address] [address] Urology 02/23/24 edgardo dental Dentist 02/23/24 documented as of this encounter
--- OUTSIDE RECORDS SUMMARY | 2024-12-24 09:55 | XMS_ITS | Encounter Summary ---
Author Organization [facility] Address [address] [place] [address] Care Team Providers Care Linotypist Name Role Phone Fei Hickey DO Primary Care Provider Unav ailable Fei Hickey DO Unavailable Unavailabl e Petrona Wade APRN Unavailable [phone] Tito Parish MD Unavailable [phone] Blayne Kyle MD Unavailable [phone] Navdeep Young MD Unavailable [phone] Juan Manuel Vallecillo MD Primary Care Provider Encounter Details Date Type Department Care Team (Late st Contact Info) Description 12/12/2023 Scanned Document [facility] PRIMARY CARE SCAN Primary Care, Scan Social History Tobacco Use [...] Description 03/03/2025 1:00 PM EDT Office Visit [address] [place] [phone] Juan Manuel Vallecillo MD 100 [facility] 101 [place] [address] documented as of this encounter Visit Diagnoses Not on filedocumented in this encounter Care Teams Linotypist Relationship Specialty Start Date End Date Fei Hickey DO PCP - General Internal Medicine 07/31/23 09/12/24 Fei Hickey DO PCP - APNCT [employer] Medicare Attributed 09/01/23 10/01/24 Juan Manuel Vallecillo MD 100 [facility] 240 [place] [address] PCP - General Internal Medicine 09/13/24 Petrona Wade APRN [address] [place] [address] Nurse Practitioner Internal Medicine 02/23/24 Tito Parish MD [address] [place] [address] Gastroenterology 02/23/24 Blayne Kyle MD [address] [place] [phone] Dermatology 02/23/24 Navdeep Young MD 100 [facility] 240 [place] [address] Urology 02/23/24 edgardo dental Dentist 02/23/24 documented as of this encounter
--- OUTSIDE RECORDS SUMMARY | 2024-12-24 09:55 | XMS_ITS | Encounter Summary ---
Author Organization [facility] Address 100 [place] [address] Care Team Providers Care Manager Utilization Name Role Phone Fei Hickey DO Primary Care Provider Unav ailable Fei Hickey DO Unavailable Unavailabl e Petrona Wade APRN Unavailable [phone] Tito Parish MD Unavailable Blayne Kyle MD Unavailable [phone] Navdeep Young MD Unavailable [phone] Juan Manuel Vallecillo MD Primary Care Provider [phone] Encounter Details Date Type Department Care Team (Late st Contact Info) Description 04/01/2024 Scanned Document [facility] at [address] [address] Fei Hickey DO Social History Tobacco Use Types Packs/Day Years Used Date Smoking Tobacco: Never Smokeless Tobacco: Never Alcohol Use Standard Drinks/Week Comments Yes 1 (1 standard drink = 0.6 oz pur e alcohol) 1 drink/wk AUDIT-C Answer Date Recorded Q1: How often do you have a drink containing alcohol? 4 or more times a week 02/23/2024 Q2: How many drinks containi ng alcohol do you have on a typical day when you are drinking? 1 or 2 Q3: How often do you have si x or more drinks on one occasion? Never 02/23/2024 PHQ-2 Answer Date Recorded PHQ-2 Total Score 0 02/23/2024 Sex and Gender Information Value Date Recorded Sex Assigned at Male 09/12/2024 10:23 PM EST Legal Sex Male 6:43 PM EST Gender Identity Male 09/12/2024 10:23 PM EST Sexual Orientation Not on file documented as of this encounter Plan of Treatment Upcoming Encounters Date Type Department Care Team ([facility] st Contact Info) Description 03/03/2025 1:00 PM EDT Office Visit [facility] 100 [facility] 101 [place] [address] Juan Manuel Vallecillo MD 100 [facility] 101 [place] [address] documented as of this encounter Visit Diagnoses Not on filedocumented in this encounter Care Teams Manager Utilization Relationship Specialty Start Date End Date Fei Hickey DO PCP - General Internal Medicine 07/31/23 09/12/24 Fei Hickey DO PCP - APAKT [employer] Medicare Attributed 09/01/23 10/01/24 Juan Manuel Vallecillo MD [address] [place] [address] PCP - General Internal Medicine 09/13/24 Petrona Wade APRN [address] [place] [address] Nurse Practitioner Internal Medicine 02/23/24 Tito Parish MD 113 [facility] 301 [place] [address] Gastroenterology 02/23/24 Blayne Kyle MD [address] [place] [phone] Dermatology 02/23/24 Navdeep Young MD [address] [place] [address] Urology 02/23/24 edgardo dental Dentist 02/23/24 documented as of this encounter
--- OUTSIDE RECORDS SUMMARY | 2024-12-24 09:55 | XMS_ITS | Encounter Summary ---
Author Organization [facility] Address 100 [place] [address] Care Team Providers Care Gantry Rigger Name Role Phone Fei Hickey DO Primary Care Provider Unav ailable Fei Hickey DO Unavailable Unavailabl e Petrona Wade APRN Unavailable [phone] Tito Parish MD Unavailable Blayne Kyle MD Unavailable [phone] Navdeep Young MD Unavailable Juan Manuel Vallecillo MD Primary Care Provider [phone] Encounter Details Date Type Department Care Team (Late st Contact Info) Description 12/19/[address] [address] Fei Hickey DO Social History Tobacco Use [...] Encounter - Venu Del Valle MA - 12/22/2023 12:40 PM EDT Pt advised of the referral * Telephone Encounter - Lillian Steele - 12/22/2023 11:12 AM EDT Pt stated he got a call from our office. Not sure who called. Please advise * Telephone Encounter - Fei Hickey DO - 12/22/2023 10:51 AM EDT No need. Entered the referral selecting patient request . Order is in. * Telephone Encounter - Venu Del Valle MA - 12/22/2023 10:[address] Navdeep Young Urologist in [facility] at [facility]. We can follow up with the reason for the referral tomorrow at his appointment. * Telephone Encounter - Fei Hickey DO - 12/22/2023 6:50 AM EDT If we could, please: Verify which Dr. Monahan the patient wants and the physical location and the reason for referral. I do not recall the discussion for this particular doctor during her most recent physician-patient encounter. And, the patient has a follow-up appointment with me on December 22 anyway; so, if he cannot get a hold of them, I will clarify this with him then. documented in this encounter Plan of Treatment Upcoming Encounters Date Type Department Care Team (Late st Contact Info) Description 03/03/2025 1:00 PM EDT Office Visit [address] [phone] Juan Manuel Vallecillo MD [address] [place] [address] 101 [place] [address] documented as of this encounter Visit Diagnoses Not on filedocumented in this encounter Care Teams Gantry Rigger Relationship Specialty Start Date End Date Fei Hickey DO PCP - General Internal Medicine 07/31/23 09/12/24 Fei Hickey DO PCP - APNJT [employer] Medicare Attributed 09/01/23 10/01/24 Juan Manuel Vallecillo MD 100 [facility] 240 [place] [address] PCP - General Internal Medicine 09/13/24 Petrona Wade APRN [address] [place] [address] Nurse Practitioner Internal Medicine 02/23/24 Tito Praish MD 113 [facility] 301 [place] [address] Gastroenterology 02/23/24 Blayne Kyle MD [address] [place] [phone] Dermatology 02/23/24 Navdeep Young MD 100 [facility] 240 [place] [address] Urology 02/23/24 edgardo arredondo Dentist 02/23/24 documented as of this encounter
--- OUTSIDE RECORDS SUMMARY | 2024-12-24 09:55 | XMS_ITS | Encounter Summary ---
Author Organization [facility] Address 100 [place] [address] Care Team Providers Care Jig Bore Operator Name Role Phone Pcp, No Primary Care Provider Unavailabl e Fei Hickey DO Primary Care Provider Unav ailable Fei Hickey DO Unavailable Unavailabl e Petrona Wade METAL BONDING WORKER Unavailable [phone] Tito Parish MD Unavailable Blayne Kyle MD Unavailable [phone] Navdeep Young MD Unavailable [phone] Juan Manuel Vallecillo MD Primary Care Provider [phone] Encounter Details Date Type Department Care Team (Late st Contact Info) Description 09/10/2018 Scanned Document [facility] [address] [place] [address] Provider, External, [address] [place] [address] Social History Tobacco Use Types Packs/Day Years Used Date Smoking Tobacco: Never Assessed Sex and Gender Information Value Date Recorded Sex Assigned at Male 09/12/2024 10:23 PM EST Legal Sex Male 6:43 PM EST Gender Identity Male 09/12/2024 10:23 PM EST Sexual Orientation Not on file documented as of this encounter Progress Notes * Tito Parish MD - 09/10/2018 11:49 AM EST HP polyps x 3 Repeat colon in 5 years documented in this encounter Plan of Treatment Upcoming Encounters Date Type Department Care Team (Late st Contact Info) Description 03/03/2025 1:00 PM EDT Office Visit [facility] 100 [facility] 101 [place] [address] Juan Manuel Vallecillo MD 100 [facility] 101 [place] [address] documented as of this encounter Procedures Procedure Name Priority Date/Time Associated Diagnosis Comments PATHOLOGY GASTROENTEROLOGY Routine 09/28/2018 documented in this encounter Results * PATHOLOGY GASTROENTEROLOGY (09/28/2018) us Tito Parish MD [facility] HX PATH PROCEDURES Final Result documented in this encounter Visit Diagnoses Not on filedocumented in this encounter Care Teams Jig Bore Operator Relationship Specialty Start Date End Date Pcp, No 80 [place] [address] PCP - General 05/14/23 07/30/23 Fei Hickey DO 80 [place] [address] PCP - General Internal Medicine 07/31/23 09/12/24 Fei Hickey DO PCP - APNJT [place] Medicare Attributed 09/01/23 10/01/24 Juan Manuel Vallecillo MD [address] [place] [address] 240 [place] [address] PCP - General Internal Medicine 09/13/24 Petrona Wade APRN [address] [place] [address] Nurse Practitioner Internal Medicine 02/23/24 Tito Parish MD [address] [place] [address] 301 [place] [address] Gastroenterology 02/23/24 Blayne Kyle MD 125 [place] [address] Dermatology 02/23/24 Navdeep Young MD 100 [facility] 240 [place] [address] Urology 02/23/24 edgardo dental Dentist 02/23/24 documented as of this encounter
--- OUTSIDE RECORDS SUMMARY | 2024-12-24 09:55 | XMS_ITS | Encounter Summary ---
Author Organization [facility] Address [address] [place] [address] Care Team Providers Care Electronic Engineering Technician Name Role Phone Petrona Wade APRN Unavailable [phone] Tito Parish MD Unavailable [phone] Blayne Kyle MD Unavailable [phone] Navdeep Young MD Unavailable [phone] Juan Manuel Vallecillo MD Primary Care Provider [phone] Encounter Details Date Type Department Care Team (Late st Contact Info) Description 12/22/[address] [address] Juan Manuel Vallecillo MD [address] [place] [address] Social History Tobacco Use Types Packs/Day Years Used Date Smoking Tobacco: Never Smokeless Tobacco: Never Alcohol Use Standard Drinks/Week Comments Yes 1 (1 standard drink = 0.6 oz pur e alcohol) 1 drink/wk [facility] Utilities Answer Date Recorded In the past 12 months has [employer], gas, oil, or water [employer] threatened to shut off services in your home? No 09/12/2024 Social Connection and Isolat ion Panel [NHANES] Answer Date Recorded In a typical week, how many times do you talk on the phone with family, friends, or neighbors? More than three times a week 09/12/2024 Frequency of Social Gatherin gs with Friends and Family Not on file 09/12/2024 Attends [employer] Services Not on file 09/12 Active Member [...] any time in the past 12 m [facility], were you homeless or living in a alf (including now)? No 09/12/2024 Education Answer Date [...] encounter Miscellaneous Notes * Telephone Encounter - Lillian Steele MA - 12/22/2024 3:06 PM EDT error documented in this encounter Plan of Treatment Upcoming Encounters Date Type Department Care Team (Late st Contact Info) Description 03/03/2025 1:00 PM EDT Office Visit [facility] 100 [facility] [address] [place] [phone] Juan Manuel Vallecillo MD 100 [facility] 101 [place] [address] documented as of this encounter Visit Diagnoses Not on filedocumented in this encounter Care Teams Electronic Engineering Technician Relationship Specialty Start Date End Date Juan Manuel Vallecillo MD [address] [address] PCP - General Internal Medicine 09/13/24 Petrona Wade APRN [address] [place] [address] Nurse Practitioner Internal Medicine 02/23/24 Tito Parish MD 113 [facility] 301 [place] [address] Gastroenterology 02/23/24 Blayne Kyle MD [address] [place] [phone] Dermatology 02/23/24 Navdeep Young MD 100 [facility] 240 [place] [address] Urology 02/23/24 edgardo dental Dentist 02/23/24 documented as of this encounter
--- OUTSIDE RECORDS SUMMARY | 2024-12-24 09:55 | XMS_ITS | Encounter Summary ---
Author Organization [facility] Address 100 [place] [address] Care Team Providers Care Metal Fabricating Supervisor Name Role Phone Fei Hickey DO Primary Care Provider Unav ailable Fei Hickey DO Unavailable Unavailabl e Petrona Wade APRN Unavailable Tito Parish MD Unavailable Blayne Kyle MD Unavailable [phone] Navdeep Young MD Unavailable Juan Manuel Vallecillo MD Primary Care Provider [phone] Encounter Details Date Type Department Care Team (Late st Contact Info) Description 04/05/2024 Scanned Document [facility] at [address] [phone] Fei Hickey DO Social History Tobacco Use [...] Upcoming Encounters Date Type Department Care Team ([facility] st Contact Info) Description 03/03/2025 1:00 PM EDT Office Visit [facility] 100 [facility] 101 [place] [address] Juan Manuel Vallecillo MD 100 [facility] 101 [place] [address] documented as of this encounter Visit Diagnoses Not on filedocumented in this encounter Care Teams Metal Fabricating Supervisor Relationship Specialty Start Date End Date Fei Hickey DO PCP - General Internal Medicine 07/31/23 09/12/24 Fei Hickey DO PCP - APLAT [employer] Medicare Attributed 09/01/23 10/01/24 Juan Manuel Vallecillo MD [address] [place] [address] PCP - General Internal Medicine 09/13/24 Petrona Wade APRN [address] [place] [address] Nurse Practitioner Internal Medicine 02/23/24 Tito Parish MD 113 [facility] 301 [place] [address] Gastroenterology 02/23/24 Blayne Kyle MD [address] [place] [phone] Dermatology 02/23/24 Navdeep Young MD [address] [place] [address] Urology 02/23/24 edgardo dental Dentist 02/23/24 documented as of this encounter
--- OUTSIDE RECORDS SUMMARY | 2024-12-24 09:55 | XMS_ITS | Encounter Summary ---
Author Organization [facility] Address [address] [place] [address] Care Team Providers Care Air Intercept Controller Supervisor Name Role Phone Fei Hickey DO Primary Care Provider Unav ailable Fei Hickey DO Unavailable Unavailabl e Petrona Wade APRN Unavailable [phone] Tito Parish MD Unavailable [phone] Blayne Kyle MD Unavailable [phone] Navdeep Young MD Unavailable [phone] Juan Manuel Vallecillo MD Primary Care Provider Encounter Details Date Type Department Care Team (Late st Contact Info) Description 12/15/2023 Scanned Document [facility] PRIMARY CARE SCAN Primary Care, Scan [...] Description 03/03/2025 1:00 PM EDT Office Visit [address] [place] [phone] Juan Manuel Vallecillo MD 100 [facility] 101 [place] [address] documented as of this encounter Visit Diagnoses Not on filedocumented in this encounter Care Teams Air Intercept Controller Supervisor Relationship Specialty Start Date End Date Fei Hickey DO PCP - General Internal Medicine 07/31/23 09/12/24 Fei Hickey DO PCP - APNCT [employer] Medicare Attributed 09/01/23 10/01/24 Juan Manuel Vallecillo MD 100 [facility] 240 [place] [address] PCP - General Internal Medicine 09/13/24 Petrona Wade APRN [address] [place] [address] Nurse Practitioner Internal Medicine 02/23/24 Tito Parish MD [address] [place] [address] Gastroenterology 02/23/24 Blayne Kyle MD [address] [place] [phone] Dermatology 02/23/24 Navdeep Young MD 100 [facility] 240 [place] [address] Urology 02/23/24 edgardo dental Dentist 02/23/24 documented as of this encounter
--- OUTSIDE RECORDS SUMMARY | 2024-12-24 09:55 | XMS_ITS | Clinical Summary ---
Author Organization [facility] Address 100 [place] [address] Care Team Providers Care Purchasing Manager Name Role Phone Petrona Wade APRN Unavailable Tito Parish MD Unavailable [phone] Blayne Kyle MD Unavailable [phone] Navdeep Young MD Unavailable [phone] Juan Manuel Vallecillo MD Primary Care Provider [phone] Allergies Active Allergy Reactions Criticality Noted Date Comments Metformin GI Intolerance/Nausea/Vomiting Low 12/22 Medications calcipotriene (DOVONEX) 0.005 % ointment APPLY TO PSORIASIS ON TRUNK, EXTREMITIES, GROIN AND BUTTOCKS TWICE DAILY NEEDED - ALTERNATING WITH STEROIDS 3 Active aspirin enteric coated (ECOTRIN LOW STRENGTH) 81 MG EC tablet Take 1 tablet (81 mg total) by mouth daily. Active Ferrous Sulfate Dried (FERROUS SULFATE IRON PO) Take by mouth daily. Active losartan (COZAAR) 25 MG tabletIndication s:Primary hypertension Take 1 tablet (25 mg total) by mouth daily. 90 tablet 1 5 Active sildenafil (VIAGRA) 50 MG tabletIndication s:Erectile dysfunction, unspecified erectile dysfunction type TAKE ONE TABLET BY MOUTH EVERY DAY NEEDED. 10 tablet 3 5 Active Active Problems Problem Noted Date Diagnosed Date Severe obesity (BMI 35.0-39.9) with comorbidity 12/24/2023 Overview (12/24/2023): Last BMI 36.97 and HTN listed in history + on losartan Encounters Date Type Department Care Team Description 12/23/2024 Orders Only [address] [place] [phone] Juan Manuel Vallecillo MD Elevated PSA (Primary Dx) 12/22/[address] [place] [address] Juan Manuel Vallecillo MD 12/22/[address] [place] [address] Juan Manuel Vallecillo MD from Last 3 Months Immunizations Immunization Administration Dates Next Due Influenza High-Dose Quadriva lent,(FLUZONE HIGH-DOSE), Perservative Free IM 0.7 mL 65 years and older 07/12/2022 Influenza Inactivated/Split Preservative Free IM 07/04/2014 Influenza, Unspecified 06/08/2020 Pneumococcal Conjugate 20-Valent 11/14/2022 Tdap 04/26/2021,07/06/2014 Family History Medical History Relation Name Comments Cancer Father Cancer Mother Relation Name Status Comments Father Mother Social History Tobacco Use Types Packs/Day Years Used Date Smoking Tobacco: Never Smokeless Tobacco: Never Tobacco Cessation:Counseling Given: No Alcohol Use Standard Drinks/Week Comments Yes 1 (1 standard drink = 0.6 oz pur e alcohol) 1 drink/wk [place] Utilities Answer Date Recorded In the past 12 months has [employer] gas, oil, or water [employer] threatened to shut off services in your home? No 09/12/2024 Social Connection and Isolat ion Panel [NHANES] Answer Date Recorded In a typical week, how many times do you talk on the phone with family, friends, or neighbors? More than three times a week 09/12/2024 Frequency of Social Gatherin gs with Friends and Family Not on file 09/12/2024 Attends [employer] Services Not on file 09/12 Active Member [...] any time in the past 12 m [facility], were you homeless or living in a long term (including now)? No 09/12/2024 Education Answer Date [...] PM EST Sexual Orientation Not on file Last Filed Vital Signs Vital Sign Reading Time Taken Comments Blood Pressure 136/86 09/13/2024 4:32 PM EST Pulse 75 09/13/2024 4:32 PM EST Temperature 36.8 ??C (98.2 ??F) 09/13/2024 4:32 PM ES T Respiratory Rate 16 09/13/2024 4:32 PM EST Oxygen Saturation 98% 09/13/2024 4:32 PM EST Inhaled Oxygen Concentration - - Weight 124 kg (273 lb 12.8 oz) 09/13/2024 4:32 P M EST Height 182.9 cm (6') 09/13/2024 4:32 PM EST Body Mass Index 37.13 09/13/2024 4:32 PM EST Plan of Treatment Upcoming Encounters Date Type Department Care Team (Late st Contact Info) Description 03/03/2025 1:00 PM EDT Office Visit [facility] 100 [facility] [address] [place] [address] Juan Manuel Vallecillo MD 100 [facility] 101 [place], [place] [address] Health Maintenance Due Date Last Done Comments Hepatitis C Virus Screening 1955 Zoster (Shingles) Vaccine (1 of 2) 2006 Influenza Vaccine 04/01/2024 07/12/2022, , 06/08/2020, Additional history exists Physical 07/31/2024 07/31/2023 Annual Wellness Visit 02/23/2025 02/23/2024 Colonoscopy 02/25/2029 02/26/2024 DTaP/Tdap/Td Vaccines (3 - Td or Tdap) 04/26/2031 04/26/2021, 07/06/2014 COVID-19 Vaccine Discontinued 02/03/2022, , 11/17/2020 Pneumococcal Vaccines 50+ Completed 11/14/2022 Hepatitis B Vaccines Aged Out No long er eligible based on patient's age to complete this topic RSV Vaccine 60 years and older and Patients Discontinued Insurance [place] Care Teams Purchasing Manager Relationship Specialty Start Date End Date Juan Manuel Vallecillo MD [address] [place] [address] PCP - General Internal Medicine 09/13/24 Petrona Wade APRN [address] [place] [address] Nurse Practitioner Internal Medicine 02/23/24 Tito Parish MD 113 [facility] 301 [place] [address] Gastroenterology 02/23/24 Blayne Kyle MD 125 [place] [address] Dermatology 02/23/24 Navdeep Young MD [address] [address] Urology 02/23/24 edgardo dental Dentist 02/23/24
== END 2024-12-24 10:38 | disposition home or self-care (01) ==
LOC: HO.HUSH 09:40
PROVIDERS: PCP Family Medicine; Visit Provider Urology
DX: R97.20 Elevated prostate specific antigen [PSA] (principal); N40.0 Benign prostatic hyperplasia without lower urinary tract symptoms
CPT/HCPCS: 99214; G2211

== ENCOUNTER → 2024-12-24 09:40 | Outpatient (BNVA) | payer MEDICARE, SELFPAY | PROVIDERS: PCP Family Medicine; Visit Provider Urology ==